=== PATIENT | female | born 1965 ===

== ENCOUNTER → 2020-01-07 | Outpatient (CLI) | payer BC | LOC: GMAM 17:03 | PROVIDERS: ATTEND Family Medicine | DX: Z00.00 Encounter for general adult medical examination without abnormal findings (principal) ==

== ENCOUNTER → 2020-04-16 | Outpatient (CLI) | payer BC | LOC: GMAM 14:34 | PROVIDERS: ATTEND Family Medicine | DX: M25.572 Pain in left ankle and joints of left foot (principal) ==